=== PATIENT | female | born 1965 | race Caucasian/White ===

== ENCOUNTER 2016-07-26 08:39 | Emergency (ER) | payer OTHER ==
[~2016-07-26] VITALS: Ht 160 cm; Wt 109.0 kg
[~2016-07-26 08:39] MED LIST: ASPI81TA82 PO; FOLI1 PO; HYDR-3533 PO; HYDR200T42 PO; ISOS30 PO; LIPI20TA PO; LORA-392 PO; METH2.5 IM; METO25 PO; NITR.4 SL; PLAV75TA PO; PRIL20CA PO; SERT100 PO
[2016-07-26 08:41] VITALS: BP 151/98; PULSE 71; RESP 18; TEMP 97.9; O2SAT 96
[2016-07-26] MEDS ORDERED: ONDANSETRON ODT 4 MG TAB PO ONE (09:00)
--- NOTE | 2016-07-26 09:01 | PD ---
HPI Chief Complaint: Complaint Time Seen by Provider: 08:49 Travel History International Travel<30 days: No Contact w/Intl Traveler<30days: No Traveled to known affect area: No History of Present Illness HPI This 51-year-old female is complaining of suprapubic pressure and frequency of urination. Some nausea but has not vomited. She feels like she had a fever at home. She has had urinary tract infections in the past and feels well. She has a history of coronary artery disease, lupus and rheumatoid arthritis. PFSH Past Medical History Hx Anticoagulant Therapy: Yes Arthritis: Yes (RA) Asthma: No Autoimmune Disease: Yes (SCLERODERMA) Blood Disorders: No Anxiety: Yes Depression: No Heart Rhythm Problems: No Cancer: No Cardiac Catheterization: Yes Cardiovascular Problems: Yes High Cholesterol: Yes Chemotherapy: No Chest Pain: Yes Congestive Heart Failure: No COPD: No Cerebrovascular Accident: No Coronary Artery Disease: Yes Diabetes: No Diminished Hearing: No Endocrine: No Fibromyalgia: Yes Gastrointestinal Disorders: Yes (GERD) GERD: Yes Genitourinary: Yes (URETHROTOMY) Headaches: No Hepatitis: No Hiatal Hernia: Yes Hypertension: Yes Immune Disorder: Yes (RHEUMATOID ARTHRITIS, POSS. LUPUS) Implanted Vascular Access Dvce: No Kidney Stones: No Musculoskeletal: Yes (RHEUMATOID ARTHRITIS, OA) Neurologic: No Psychiatric: Yes (CLAUSTROPHOBIA, PANIC ATTACKS) Reproductive: Yes (MENORRHAGIA, DYSMENORRHEA) Respiratory: No Migraines: No Myocardial Infarction: Yes (2012) Radiation Therapy: No Renal Failure: No Seizures: No Sickle Cell Disease: No Sleep Apnea: No Thyroid Disease: No Ulcer: No Tetanus Vaccination: < 5 Years Influenza Vaccination: Yes ?: Not Past Surgical History Abdominal Surgery: No AICD: No Arteriovenous Shunt: No Body Medical Devices: CARDIAC STENTS, STERNAL WIRES Cardiac Surgery: Yes (2 VESSELL CABG IN FEB 2013, CARDIAC STENTS 09/2013,05/2014) Section: Yes Coronary Artery Bypass Graft: Yes (X2) Coronary Stent: Yes (10/2013 X2 05/2014 X1) Ear Surgery: No Endocrine Surgery: No Eye Surgery: No Genitourinary Surgery: Yes (CYSTO, URETHROTOMY ) Gynecologic Surgery: Yes (, TUBAL LIGATION) Hysterectomy: Yes Insulin Pump: No Joint Replacement: No Neurologic Surgery: No Oral Surgery: Yes (DENTAL EXTRACT., TONSILLECTOMY) Pacemaker: No Thoracic Surgery: Yes Other Surgery: Yes (CABG, , , DENTAL) Social History Alcohol Use: No Tobacco Use: No Substance Use: No Allergies-Medications (Allergen,Severity, Reaction): Coded Allergies: Demerol (Verified Allergy, Severe, Confusion, 07/26/16) Dilaudid (Verified Allergy, Severe, Flushing, 07/26/16) CONFUSION, REDNESS FROM CHEST UP Morphine (Verified Allergy, Severe, Rash, 07/26/16) REDNESS FROM CHEST UP, CONFUSION Contrast Media (Unverified Adverse Reaction, Intermediate, BURNING ON INJECTION, 07/26/16) Reported Meds & Prescriptions Reported Meds & Active Scripts Active Reported Prozac (Fluoxetine HCl) 40 Mg Cap 40 Mg PO DAILY [Embril] 50 Mg SQ WEEKLY Nitroglycerin SL (Nitroglycerin) 0.4 Mg Subl 0.4 Mg SL DIRECTED PRN ONE TABLET UNDER THE TONGUE NEEDED FOR CHEST PAIN, MAY REPEAT EVERY FIVE MINUTES FOR A TOTAL OF 3 DOSES OR CALL 911 IF NO RELIEF Metoprolol Tartrate 25 Mg Tab 25 Mg PO BID Methotrexate 2.5 Mg Tab 7.5 Mg IM Q7D Ativan (Lorazepam) 0.5 Mg Tab 0.5 Mg PO Q8H PRN Isosorbide Mononitrate 20 Mg Tab 60 Mg PO HS Take 2 doses 7 hours apart. Lortab (Hydrocodone-Acetaminophen) 5-325 Mg Tab 1 Tab PO TID PRN Plaquenil (Hydroxychloroquine Sulfate) 200 Mg Tab 200 Mg PO BID Take with food Folic Acid 800 Mcg Tab 1 Mg PO DAILY Plavix (Clopidogrel Bisulfate) 300 Mg Tab 75 Mg PO DAILY Lipitor (Atorvastatin Calcium) 20 Mg Tab 20 Mg PO HS Aspirin 81 Mg Chew 81 Mg CHEW DAILY Review of Systems General / Constitutional: Positive: Fever, Chills Eyes: No: Diploplia, Blurred Vision HENT: No: Headaches, Vertigo Cardiovascular: No: Chest Pain or Discomfort, Palpitations Respiratory: No: Cough, Shortness of Breath Gastrointestinal: No: Nausea, Vomiting Genitourinary: Positive: Frequency, Dysuria Musculoskeletal: No: Myalgias, Arthralgias Skin: No Rash, No Itching Neurologic: No: Weakness, Dizziness Endocrine: No: Heat Intolerance, Cold Intolerance Hematologic/Lymphatic: No: Easy Bruising Physical Exam Narrative GENERAL: Well-developed female SKIN: Focused skin assessment warm/dry. HEAD: Atraumatic. Normocephalic. EYES: Pupils equal and round. No scleral icterus. No injection or drainage. ENT: No nasal bleeding or discharge. Mucous membranes pink and moist. NECK: Trachea midline. No JVD. CARDIOVASCULAR: Regular rate and rhythm. No murmur appreciated. RESPIRATORY: No accessory muscle use. Clear to auscultation. Breath sounds equal bilaterally. GASTROINTESTINAL: Abdomen soft, there is some suprapubic tenderness, nondistended. Hepatic and splenic margins not palpable. Mild left CVA tenderness MUSCULOSKELETAL: No obvious deformities. No clubbing. No cyanosis. No edema. NEUROLOGICAL: Awake and alert. No obvious cranial nerve deficits. Motor grossly within normal limits. Normal speech. PSYCHIATRIC: Appropriate mood and affect; insight and judgment normal. Data Data Last Documented VS Vital Signs Date Time Temp Pulse Resp B/P Pulse Ox O2 Delivery O2 Flow Rate FiO2 07/26/16 08:41 97.9 71 18 151/98 96 Orders Urinalysis - C+S If Indicated (07/26/16 08:52) Ondansetron Odt (Zofran Odt) (07/26/16 09:00) Urine Culture (07/26/16 08:35) Cephalexin (Keflex) (07/26/16 09:30) Phenazopyridine (Pyridium) (07/26/16 09:30) Labs Laboratory Tests Test 07/26/16 08:35 Urine Collection Type CLEAN CATCH Urine Color YELLOW Urine Turbidity MOD Urine pH 6.0 Urine Specific [place] 1.017 Urine Protein 30 mg/dL Urine Glucose (UA) NEG mg/dL Urine Ketones NEG mg/dL Urine Occult Blood SMALL Urine Nitrite POS Urine Bilirubin NEG Urine Leukocyte Esterase MOD Urine RBC 0-3 /hpf Urine WBC 50-99 /hpf Urine WBC Clumps MOD Urine Squamous Epithelial > 8 /hpf Cells Urine Amorphous Sediment FEW Urine Bacteria MOD /hpf Microscopic Urinalysis Comment CULTURE INDICATED Urine Collection Time 0840 MDM Medical Decision Making Medical Screen Exam Complete: Yes Emergency Medical Condition: Yes Medical Record Reviewed: Yes Differential Diagnosis Differential includes UTI, cystitis, pyelonephritis Narrative Course Urinalysis shows 50-99 white cells with moderate clumps. Impression is urinary tract infection. She'll be treated with Keflex Diagnosis Primary Impression: Urinary tract infection Qualified Code: N30.00 - Acute cystitis without hematuria Scripts Ondansetron Odt (Zofran Odt)4 Mg Tab4 Mg SL Q6HR PRN (Nausea/Vomiting) #10 TAB Ref 0 Prov:Christopher Tamayo MD 07/26/16 Phenazopyridine (Pyridium)100 Mg [id number] Mg PO Q8H PRN (DYSURIA) #10 TAB Ref 0 Prov:Christopher Tamayo MD 07/26/16 Cephalexin 500 Mg [id number] Mg PO Q6H 10 Days Ref 0 Prov:hCristopher Tamaoy MD 07/26/16 Disposition: 01 DISCHARGE HOME Condition: Stable Christopher Tamayo MD July 26, 2016 09:01
[2016-07-26 09:02] LABS: BLOOD, URINE SMALL (NEG); GLUCOSE,URINE NEG (NEG); KETONE, URINE NEG (NEG)
[2016-07-26] MEDS ORDERED: FOLI800T PO (09:05)
[2016-07-26] MEDS ORDERED: OMEP20TA PO (09:05)
[2016-07-26] MEDS ORDERED: METH2.5T IM (09:05)
[2016-07-26] MEDS ORDERED: NITR1SUB3 SL (09:05)
[2016-07-26] MEDS ORDERED: PROZ40CA PO (09:05)
[2016-07-26] MEDS ORDERED: LORA-392 PO (09:05)
[2016-07-26] MEDS ORDERED: HYDR-3533 PO (09:05)
[2016-07-26] MEDS ORDERED: METO25TA3 PO (09:05)
[2016-07-26] MEDS ORDERED: EMBRIL SQ (09:05)
[2016-07-26] MEDS ORDERED: CLOP300 PO (09:05)
[2016-07-26] MEDS ORDERED: ASPI81CH CHEW (09:05)
[2016-07-26] MEDS ORDERED: LIPI20TA PO (09:05)
[2016-07-26] MEDS ORDERED: ISOS20TA PO (09:05)
[2016-07-26] MEDS ORDERED: PLAQ200T PO (09:05)
[2016-07-26 09:06] LABS: NITRITE,URINE POS (NEG)
[2016-07-26 09:08] LABS: BACTERIA, URINE MOD /hpf; CULTURE IF INDICATED CULTURE INDICATED; METHOD OF COLLECTION CLEAN CATCH; RBC, URINE 0-3 /hpf (0-3); SQUAMOUS EPITHELIAL CELL URINE > 8 /hpf (0-5); URINE COLOR YELLOW (YELLW/STRAW)
[2016-07-26 09:09] LABS: COMMENT (UR) CULTURE INDICATED
[2016-07-26] MEDS ORDERED: PHEN0.4T PO (09:21)
[2016-07-26] MEDS ORDERED: CEPH500T PO (09:21)
[2016-07-26] MEDS ORDERED: ZOFR4TAB3 SL (09:22)
[2016-07-26] MEDS ORDERED: CEPHALEXIN MONOHYDRATE 500 MG CAP PO ONE (09:30)
[2016-07-26] MEDS ORDERED: PHENAZOPYRIDINE HCL 200 MG TAB PO ONE (09:30)
[2016-07-27] MEDS ORDERED: ENBR25IN2 SQ (10:48)
== END 2016-07-26 09:31 | disposition home or self-care (01) ==
LOC: PHED 08:39
DX: N39.0 Urinary tract infection, site not specified (principal); I25.2 Old myocardial infarction; M06.9 Rheumatoid arthritis, unspecified; I10 Essential (primary) hypertension; K21.9 Gastro-esophageal reflux disease without esophagitis; M79.7 Fibromyalgia; I25.10 Atherosclerotic heart disease of native coronary artery without angina pectoris; F41.9 Anxiety disorder, unspecified; Z79.01 Long term (current) use of anticoagulants
CPT/HCPCS: 81001; 87077; 87086; 87186; 99283

== ENCOUNTER 2017-03-15 12:40 | Observation (INO) | payer OTHER ==
[~2017-03-15] VITALS: Ht 160 cm; Wt 108.8 kg
[2017-03-15] VITALS (11 sets, daily range): BP systolic 112–156; BP diastolic 60–79; PULSE 56–86; RESP 16–20; TEMP 96.8–97.9; O2SAT 96–98
[~2017-03-15 12:40] MED LIST changes: +ASPI-516 CHEW; -ASPI81TA82 PO; +CEPH500T PO; +CLOP300 PO; +ENBR25IN2 SQ; -FOLI1 PO; +FOLI800T PO; -HYDR200T42 PO; +ISOS20TA PO; -ISOS30 PO; -METH2.5 IM; +METH2.5T IM; -METO25 PO; +METO25TA3 PO; -NITR.4 SL; +NITR1SUB3 SL; +OMEP20TA93 PO; +PHEN0.4T PO; +PLAQ200T PO; -PLAV75TA PO; -PRIL20CA PO; +PROZ40CA PO; -SERT100 PO; +ZOFR4TAB3 SL
[2017-03-15] MEDS ORDERED: PRED5TAB PO (12:59)
[2017-03-15] MEDS ORDERED: HYDR-3516 PO (12:59)
[2017-03-15] MEDS ORDERED: NITROGLYCERIN 2% OINT 1 GM PACKET TOP ONE (13:00)
[2017-03-15] MEDS ORDERED: SODIUM CHLORIDE 0.9% FLUSH 10 ML FLUSH IVF PRN (13:00)
[2017-03-15] MEDS: METOPROLOL TARTRATE 5 MG/5 ML VIAL IVS SCH ×3 (13:00→13:10)
--- NOTE | 2017-03-15 13:11 | RADRPT ---
EXAM DATE/TIME: 03/15/2017 12:59 [facility] COMPARISON: CHEST SINGLE AP, December 26, 2015, 4:25. INDICATIONS : Chest pain MEDICAL HISTORY : Hypertension. Hypercholesterolemia. Myocardial infarction SURGICAL HISTORY : CABG. ENCOUNTER: Initial ACUITY: 1 day PAIN SCORE: 10/10 LOCATION: middle chest FINDINGS: Portable AP view of the chest demonstrates a normal-sized cardiac silhouette in this patient post med stone sternotomy. No effusion, consolidation, or pneumothorax is identified. The bones and soft tissues demonstrate no acute finding. CONCLUSION: No acute cardiopulmonary abnormality is identified. Abdelrahman Kellogg MD on March 15, 2017 at 13:08 Board Certified Radiologist. This report was verified electronically.
[2017-03-15 13:20] LABS: BASOPHIL # 0.2 TH/MM3 (0-0.2); BASOPHIL % 1.9 % (0.0-2.0); EOSINOPHIL # 0.2 TH/MM3 (0-0.4); EOSINOPHIL % 1.7 % (0.0-4.0); HEMATOCRIT 41.9 % (35.0-46.0); LYMPH % 38.9 % (9.0-44.0); LYMPHOCYTE # 4.3 TH/MM3 (1.0-4.8); MEAN CELL VOLUME 80.1 FL (80.0-100.0); MEAN CORPUSCULAR HEMOGLOBIN 24.9 PG (27.0-34.0); MEAN PLATELET VOLUME 7.3 FL (7.0-11.0); MONO % 2.5 % (0.0-8.0); MONOCYTE # 0.3 TH/MM3 (0-0.9); PLATELET COUNT 497 TH/MM3 (150-450); RED BLOOD COUNT 5.23 MIL/MM3 (4.00-5.30); RED CELL DISTRIBUTION WIDTH 17.2 % (11.6-17.2)
--- NOTE | 2017-03-15 13:23 | PD ---
HPI . Chest pain Chief Complaint: Chest Pain Time Seen by Provider: 12:52 Travel History International Travel<30 days: No Contact w/Intl Traveler<30days: No Traveled to known affect area: No History of Present Illness HPI This patient presents with chief complaint of chest pain. Onset was 2 AM. She states that the pain initially eased off but then recurred again about 10:00 this morning and constant since then. She describes the pain as a heaviness which radiates to her back. She rates it 7/10. She has not noted any modifying factors. Associated symptoms include sweating and nausea. She took aspirin prior to arrival. She states that she does not have any nitroglycerin at home. This patient is a previous history of coronary artery disease and is status post CABG 2 vessels and 5 previous stents. She did have an evaluation in the chest pain center in December 2015. She had a negative Lexiscan stress test and myocardial perfusion scan. PFSH Past Medical History Hx Anticoagulant Therapy: Yes Arthritis: Yes (RA) Asthma: No Autoimmune Disease: Yes (SCLERODERMA) Blood Disorders: No Anxiety: Yes Depression: No Heart Rhythm Problems: No Cancer: No Cardiac Catheterization: Yes Cardiovascular Problems: Yes High Cholesterol: Yes Chemotherapy: No Chest Pain: Yes Congestive Heart Failure: No COPD: No Cerebrovascular Accident: No Coronary Artery Disease: Yes Diabetes: No Diminished Hearing: No Endocrine: No Fibromyalgia: Yes Gastrointestinal Disorders: Yes (GERD) GERD: Yes Genitourinary: Yes (URETHROTOMY) Headaches: No Hepatitis: No Hiatal Hernia: Yes Hypertension: Yes Immune Disorder: Yes (RHEUMATOID ARTHRITIS, POSS. LUPUS) Implanted Vascular Access Dvce: No Kidney Stones: No Musculoskeletal: Yes (RHEUMATOID ARTHRITIS, OA) Neurologic: No Psychiatric: Yes (CLAUSTROPHOBIA, PANIC ATTACKS) Reproductive: Yes (MENORRHAGIA, DYSMENORRHEA) Respiratory: No Migraines: No Myocardial Infarction: Yes (2012) Radiation Therapy: No Renal Failure: No Seizures: No Sickle Cell Disease: No Sleep Apnea: No Thyroid Disease: No Ulcer: No ?: Not Past Surgical History Abdominal Surgery: No AICD: No Arteriovenous Shunt: No Body Medical Devices: CARDIAC STENTS, STERNAL WIRES Cardiac Surgery: Yes (2 VESSELL CABG IN FEB 2013, CARDIAC STENTS 09/2013,05/2014) Section: Yes Coronary Artery Bypass Graft: Yes (X2) Coronary Stent: Yes (10/2013 X2 05/2014 X1) Ear Surgery: No Endocrine Surgery: No Eye Surgery: No Genitourinary Surgery: Yes (CYSTO, URETHROTOMY ) Gynecologic Surgery: Yes (, TUBAL LIGATION) Hysterectomy: Yes Insulin Pump: No Joint Replacement: No Neurologic Surgery: No Oral Surgery: Yes (DENTAL EXTRACT., TONSILLECTOMY) Pacemaker: No Thoracic Surgery: Yes Other Surgery: Yes (CABG, , , DENTAL) Social History Alcohol Use: No Tobacco Use: No Substance Use: No Allergies-Medications (Allergen,Severity, Reaction): Coded Allergies: hydromorphone (Unverified Allergy, Severe, Flushing, 10/17/16) CONFUSION, REDNESS FROM CHEST UP meperidine (Unverified Allergy, Severe, Confusion, 10/17/16) morphine (Unverified Allergy, Severe, Rash, 10/17/16) REDNESS FROM CHEST UP, CONFUSION diatrizoate meglumine (Unverified Adverse Reaction, Intermediate, BURNING ON INJECTION, 10/17/16) gadobenic acid (Unverified Adverse Reaction, Intermediate, BURNING ON INJECTION, 10/17/16) gadodiamide (Unverified Adverse Reaction, Intermediate, BURNING ON INJECTION, 10/17/16) gadoteridol (Unverified Adverse Reaction, Intermediate, BURNING ON INJECTION, 10/17/16) iodixanol (Unverified Adverse Reaction, Intermediate, BURNING ON INJECTION , 10/17/16) iohexol (Unverified Adverse Reaction, Intermediate, BURNING ON INJECTION, 10/17/16) Reported Meds & Prescriptions Reported Meds & Active Scripts Active Reported Prednisone 5 Mg Tab 5 Mg PO DAILY Hydrocodone-Acetaminophen 5-325 mg Tab 1 Tab PO BID PRN Enbrel Inj Kit (Etanercept) 25 Mg Kit 50 Mg SQ WEEKLY Prozac (Fluoxetine HCl) 40 Mg Cap 40 Mg PO DAILY Omeprazole 20 Mg Tab 20 Mg PO DAILY Nitroglycerin SL (Nitroglycerin) 0.4 Mg Subl 0.4 Mg SL DIRECTED PRN ONE TABLET UNDER THE TONGUE NEEDED FOR CHEST PAIN, MAY REPEAT EVERY FIVE MINUTES FOR A TOTAL OF 3 DOSES OR CALL 911 IF NO RELIEF Metoprolol Tartrate 25 Mg Tab 25 Mg PO BID Methotrexate 2.5 Mg Tab 7.5 Mg IM Q7D Ativan (Lorazepam) 0.5 Mg Tab 0.5 Mg PO Q8H PRN Plaquenil (Hydroxychloroquine Sulfate) 200 Mg Tab 200 Mg PO BID Take with food Plavix (Clopidogrel Bisulfate) 300 Mg Tab 75 Mg PO DAILY Lipitor (Atorvastatin Calcium) 20 Mg Tab 20 Mg PO HS Aspirin 81 Mg Chew 81 Mg CHEW DAILY Review of Systems Except as stated in HPI: all other systems reviewed are Neg General / Constitutional: Positive: Other (diaphoresis) Cardiovascular: Positive: Chest Pain or Discomfort Respiratory: Positive: Shortness of Breath Gastrointestinal: Positive: Nausea Physical Exam Narrative GENERAL: Patient looks comfortable. SKIN: warm/dry. No diaphoresis currently. HEAD: Normocephalic. Atraumatic. EYES: Pupils equal and round. No scleral icterus. No injection or drainage. ENT: No nasal bleeding or discharge. Mucous membranes pink and moist. NECK: Trachea midline. Full range of motion without pain.. CARDIOVASCULAR: Regular rate and rhythm. Heart sounds are normal. RESPIRATORY: No accessory muscle use. Clear to auscultation. Breath sounds equal bilaterally. Chest wall is nontender to palpation. GASTROINTESTINAL: Abdomen soft. Nontender. Bowel sounds present. Nondistended. MUSCULOSKELETAL: No obvious deformities. No peripheral edema. NEUROLOGICAL: Awake and alert. No obvious cranial nerve deficits. Motor grossly within normal limits. Normal speech. PSYCHIATRIC: Appropriate mood and affect; insight and judgment normal. Data Data Last Documented VS Vital Signs Date Time Temp Pulse Resp B/P (MAP) Pulse Ox O2 Delivery O2 Flow Rate FiO2 03/15/17 13:30 60 17 136/65 (88) 97 Room Air Orders Orders Basic Metabolic Panel (Bmp) (03/15/17 12:52) Ckmb (Isoenzyme) Profile (03/15/17 12:52) Complete Blood Count With Diff (03/15/17 12:52) Magnesium (Mg) (03/15/17 12:52) Prothrombin Time / Inr (Pt) (03/15/17 12:52) Act Partial Throm Time (Ptt) (03/15/17 12:52) Troponin I (03/15/17 12:52) Chest, Single Ap (03/15/17 12:52) Ecg Monitoring (03/15/17 12:52) Iv Access Insert/Monitor (03/15/17 12:52) Oximetry (03/15/17 12:52) Nitroglycerin 2% Oint (Nitroglycerin 2% (03/15/17 13:00) Sodium Chloride 0.9% Flush (Ns Flush) (03/15/17 13:00) Metoprolol Tartrate Inj (Lopressor Inj) (03/15/17 13:00) Admit Order (Ed Use Only) (03/15/17 ) Database Operator / Telemetry ANA.Q8H (03/15/17 14:23) Vital Signs (Adult) Q4H (03/15/17 14:23) Diet Npo (03/15/17 Dinner) Diet Heart Healthy (03/15/17 Dinner) Activity Oob With Assistance (03/15/17 14:23) Notify Dr: Other (03/15/17 14:23) Labs Laboratory Tests Test 03/15/17 13:15 White Blood Count 11.0 TH/MM3 Red Blood Count 5.23 MIL/MM3 Hemoglobin 13.0 GM/DL Hematocrit 41.9 % Mean Corpuscular Volume 80.1 FL Mean Corpuscular Hemoglobin 24.9 PG Mean Corpuscular Hemoglobin Concent 31.0 % Red Cell Distribution Width 17.2 % Platelet Count 497 TH/MM3 Mean Platelet Volume 7.3 FL Neutrophils (%) (Auto) 55.0 % Lymphocytes (%) (Auto) 38.9 % Monocytes (%) (Auto) 2.5 % Eosinophils (%) (Auto) 1.7 % Basophils (%) (Auto) 1.9 % Neutrophils # (Auto) 6.0 TH/MM3 Lymphocytes # (Auto) 4.3 TH/MM3 Monocytes # (Auto) 0.3 TH/MM3 Eosinophils # (Auto) 0.2 TH/MM3 Basophils # (Auto) 0.2 TH/MM3 CBC Comment DIFF FINAL Differential Comment Prothrombin Time 10.0 SEC Prothromb Time International Ratio 1.0 RATIO Activated Partial Thromboplast Time 27.2 SEC Blood Urea Nitrogen 15 MG/DL Creatinine 0.87 MG/DL Random Glucose 108 MG/DL Calcium Level 8.7 MG/DL Magnesium Level 2.4 MG/DL Sodium Level 138 MEQ/L Potassium Level 4.2 MEQ/L Chloride Level 104 MEQ/L Carbon Dioxide Level 25.3 MEQ/L Anion Gap 9 MEQ/L Estimat Glomerular Filtration Rate 69 ML/MIN Total Creatine Kinase 42 U/L Troponin I LESS THAN 0.02 NG/ML Exceptions Acute Myocardial Infarction ASA Not Given on Arrival: Already taken by patient MDM Medical Decision Making Medical Screen Exam Complete: Yes Emergency Medical Condition: Yes Medical Record Reviewed: Yes (PMH of HTN, CAD, PVD, RA) Differential Diagnosis Differential diagnosis of chest pain includes but is not limited to musculoskeletal pain, pulmonary embolism, acute coronary syndrome, pneumonia, pleurisy Narrative Course This patient presents with a chief complaint chest pain. Onset was 2 AM. She has a positive history of coronary artery disease and is status post CABG 2 vessels and stents 5. My initial plan will be to admit her to the chest pain center if her first set of enzymes is negative. CBC & BMP Diagram 03/15/17 13:15 Calcium Level 8.7, Magnesium Level 2.4 trop < 0.02 Last Impressions Chest X-Ray 03/15/17 1252 Signed Impressions: Service Date/Time: Wednesday, March 15, 2017 12:59 - CONCLUSION: No acute cardiopulmonary abnormality is identified. Abdelrahman Kellogg MD Patient reports that her pain is still a 6/10. It did ease with NITROGLYCERIN. She is allergic to morphine. I will admit the patient chest pain center. Physician Communication Physician Communication Dr. Temple Diagnosis Primary Impression: Chest pain Qualified Codes: R07.9 - Chest pain, unspecified Admitting Information Admitting Physician Requests: Observation Condition: Stable Clarita Larsen MD Mar 15, 2017 13:23
[2017-03-15 13:35] LABS: CHLORIDE 104 MEQ/L (98-107); SODIUM (NA) 138 MEQ/L (136-145)
[2017-03-15 13:37] LABS: CALCIUM 8.7 MG/DL (8.5-10.1)
[2017-03-15 13:38] LABS: BICARBONATE 25.3 MEQ/L (21.0-32.0); BLOOD UREA NITROGEN 15 MG/DL (7-18); GLUCOSE,RANDOM 108 MG/DL (74-106); MAGNESIUM 2.4 MG/DL (1.5-2.5)
[2017-03-15 13:41] LABS: CREATININE 0.87 MG/DL (0.50-1.00); GLOMERULAR FILTRATION RATE 69 ML/MIN (>89)
[2017-03-15 13:46] LABS: TROPONIN I LESS THAN 0.02 NG/ML (0.02-0.05)
[2017-03-15] MEDS ORDERED: SODIUM CHLORIDE 0.9% FLUSH 10 ML FLUSH IV FLUSH PRN (14:45)
[2017-03-15] MEDS ORDERED: NALOXONE HCL 0.4 MG/ML AMP IV PUSH PRN (14:45)
--- NOTE | 2017-03-15 15:48 | HHI.HP ---
[facility] Primary Care Physician No Primary Care Physician Admission Diagnosis Chest pain Diagnoses: (1) Chest pain Diagnosis: Principal Chief Complaint: Chest pain Travel History International Travel<30 Days: No Contact w/Intl Traveler <30 Da: No Traveled to Known Affected Are: No History of Present Illness Written by Sita Avalos, acting as scribe for Dr. Temple on 03/15/17 at 15:35. This is a 51-year-old female patient with a known medical history of rheumatoid arthritis, hyperlipidemia, CAD with history of CABG and cardiac stent placement who presented to the ED with complaints of chest pain. Patient states that around 2 AM this morning while laying in bed she developed a midsternal pressure -like pain that was heavy and constant in nature rated seven out of ten on pain scale, felt heavy. Denies any radiation of pain to her neck jaw or arm. Does admit to associated nausea diaphoresis and shortness of breath. Denies any vomiting. Patient states that around 10 AM this morning she decided to take the dog for a walk to help relieve the pain which actually made it worse with increasing shortness of breath. Patient states that she tried to lay down and the pain just kept getting worse therefore she presented to the ED. She denies any recent illness including fever, chills, abdominal pain, nausea, vomiting, diarrhea or dysuria. Patient does state that she has a history of CAD with TN and CABG 2 vessels and five previous cardiac stent placements. Patient states that her last cardiac catheterization was done in 2014. She last underwent a cardiac chemical stress test in December of 2015 which was reportedly negative. Patient was following with Dr. tyson in the outpatient setting, but has recently switched her health insurance and no longer follows with him. Denies having a current electrician outside. Review of Systems Constitutional: DENIES: Fever, Chills Eyes: DENIES: Blurred vision, Diplopia Respiratory: COMPLAINS OF: Shortness of breath, DENIES: Cough Cardiovascular: COMPLAINS OF: Chest pain Gastrointestinal: COMPLAINS OF: Nausea, DENIES: Abdominal pain, Bloody stools, Constipation, Diarrhea, Vomiting Integumentary: DENIES: Abnormal pigmentation Hematologic/lymphatic: DENIES: Bruising Psychiatric: COMPLAINS OF: Anxiety Except as stated in HPI: all other systems reviewed are Neg Past Family Social History Past Medical History 1) hypertension 2) coronary artery disease CABG 2 in 2012 2 coronary stents placed in September 2013 In-stent stenosis in May 2014 3) peripheral arterial disease Status post restenosis, performed by Dr. Tyson 4) rheumatoid arthritis 5) anxiety 6) GERD 7) hyperlipidemia 8) anxiety and panic attacks 9) vitamin D deficiency Past Surgical History 1) right knee arthroscopy 2) 3) cystoscopy 4) stenting of her right external iliac artery and PTCA with stenting of the right posterior tibial artery with thrombectomy of the right posterior tibial artery November 2013 5) subsequent repeat revascularization procedures of the lower extremities 6) CABG 7) dilation and curettage with hysteroscopy and endometrial polypectomy Reported Medications Active Reported Prednisone 5 Mg Tab 5 Mg PO DAILY Hydrocodone-Acetaminophen 5-325 mg Tab 1 Tab PO BID PRN Enbrel Inj Kit (Etanercept) 25 Mg Kit 50 Mg SQ WEEKLY Prozac (Fluoxetine HCl) 40 Mg Cap 40 Mg PO DAILY Omeprazole 20 Mg Tab 20 Mg PO DAILY Nitroglycerin SL (Nitroglycerin) 0.4 Mg Subl 0.4 Mg SL DIRECTED PRN ONE TABLET UNDER THE TONGUE NEEDED FOR CHEST PAIN, MAY REPEAT EVERY FIVE MINUTES FOR A TOTAL OF 3 DOSES OR CALL 911 IF NO RELIEF Metoprolol Tartrate 25 Mg Tab 25 Mg PO BID Methotrexate 2.5 Mg Tab 7.5 Mg IM Q7D Ativan (Lorazepam) 0.5 Mg Tab 0.5 Mg PO Q8H PRN Plaquenil (Hydroxychloroquine Sulfate) 200 Mg Tab 200 Mg PO BID Take with food Plavix (Clopidogrel Bisulfate) 300 Mg Tab 75 Mg PO DAILY Lipitor (Atorvastatin Calcium) 20 Mg Tab 20 Mg PO HS Aspirin 81 Mg Chew 81 Mg CHEW DAILY Allergies: Coded Allergies: hydromorphone (Unverified Allergy, Severe, Flushing, 10/17/16) CONFUSION, REDNESS FROM CHEST UP meperidine (Unverified Allergy, Severe, Confusion, 10/17/16) morphine (Unverified Allergy, Severe, Rash, 10/17/16) REDNESS FROM CHEST UP, CONFUSION diatrizoate meglumine (Unverified Adverse Reaction, Intermediate, BURNING ON INJECTION, 10/17/16) gadobenic acid (Unverified Adverse Reaction, Intermediate, BURNING ON INJECTION, 10/17/16) gadodiamide (Unverified Adverse Reaction, Intermediate, BURNING ON INJECTION, 10/17/16) gadoteridol (Unverified Adverse Reaction, Intermediate, BURNING ON INJECTION, 10/17/16) iodixanol (Unverified Adverse Reaction, Intermediate, BURNING ON INJECTION , 10/17/16) iohexol (Unverified Adverse Reaction, Intermediate, BURNING ON INJECTION, 10/17/16) Active Ordered Medications Current Medications Medications (Trade) Dose Ordered Sig/Indy Route Start Time Stop Time Status Last Admin (NS Flush) 2 ml UNSCH PRN IVF 03/15/17 13:00 (NS Flush) 2 ml UNSCH PRN IV FLUSH 03/15/17 14:45 UNV (NS Flush) 2 ml BID IV FLUSH 03/15/17 21:00 UNV (Tylenol) 650 mg Q4H PRN PO 03/15/17 16:00 (Zofran Inj) 4 mg Q6H PRN IVP 03/15/17 14:45 UNV (Restoril) 15 mg HS PRN PO 03/15/17 14:45 UNV (Lovenox Inj) 40 mg Q24H SQ 03/15/17 14:45 UNV (Narcan Inj) 0.4 mg UNSCH PRN IV PUSH 03/15/17 14:45 UNV (Jacqueline-Colace) 1 tab BID PO 03/15/17 21:00 (Milk Of Magnesia Liq) 30 ml Q12H PRN PO 03/15/17 14:45 UNV (Senokot) 17.2 mg Q12H PRN PO 03/15/17 14:45 UNV (Dulcolax Supp) 10 mg DAILY PRN RECTAL 03/15/17 16:00 (Lactulose Liq) 30 ml DAILY PRN PO 03/15/17 16:00 (Aspirin Chew) 81 mg DAILY CHEW 03/16/17 09:00 (Lipitor) 20 mg HS PO 03/15/17 21:00 (Plavix) 75 mg DAILY PO 03/16/17 09:00 ([place] 5-325 Mg) 1 tab BID PRN PO 03/15/17 14:45 UNV (Plaquenil) 200 mg BID PO 03/15/17 21:00 UNV (Ativan) 0.5 mg Q8H PRN PO 03/15/17 14:45 UNV (Lopressor) 25 mg BID PO 03/15/17 21:00 UNV (Deltasone) 5 mg DAILY PO 03/16/17 09:00 UNV Non-Formulary Medication 50 mg WEEKLY SQ 03/15/17 14:45 UNV Non-Formulary Medication 40 mg DAILY PO 03/16/17 09:00 UNV Non-Formulary Medication 20 mg DAILY PO 03/16/17 09:00 UNV (Nitroglycerin 2% Oint) 1 inch Q6HR TOPICAL 03/15/17 18:00 UNV Family History Maternal medical history significant for rheumatoid arthritis. Mother also had two MIs in the past. Paternal medical history significant for TN and stent placement. Social History Patient quit smoking in 2012, prior to that she smoked over thirty years roughly 2 packs per day. Admits to rare alcohol use. Denies any illicit drug use. Physical Exam Vital Signs Vital Signs Date Time Temp Pulse Resp B/P (MAP) Pulse Ox O2 Delivery O2 Flow Rate FiO2 03/15/17 14:30 56 16 119/60 (79) 97 Room Air 03/15/17 13:30 60 17 136/65 (88) 97 Room Air 03/15/17 13:15 18 96 Room Air 03/15/17 13:15 58 18 135/60 (85) 96 Room Air 03/15/17 12:46 60 16 156/79 (104) 98 Physical Exam GENERAL: This is a well-nourished, well-developed patient, in no apparent distress. SKIN: No rashes, ecchymoses or lesions. Warm and dry. HEAD: Atraumatic. Normocephalic. EYES: Pupils equal round and reactive. Extraocular motions intact. No scleral icterus. No injection or drainage. ENT: Nose without bleeding, purulent drainage or septal hematoma. Throat without erythema, tonsillar hypertrophy or exudate. Uvula midline. Airway patent. NECK: Trachea midline. No JVD. Supple. CARDIOVASCULAR: Regular rate and rhythm without murmurs, gallops, or rubs. No reproducible chest pain to palpation. RESPIRATORY: Clear to auscultation. Breath sounds equal bilaterally. No wheezes , rales, or rhonchi. GASTROINTESTINAL: Abdomen soft, non-tender, nondistended. No guarding. MUSCULOSKELETAL: Extremities without clubbing, cyanosis, or edema. No joint tenderness, effusion, or edema noted. NEUROLOGICAL: Awake and alert. Cranial nerves II through XII intact. Motor and sensory grossly within normal limits. Five out of 5 muscle strength in all muscle groups. Normal speech. Laboratory Laboratory Tests Test 03/15/17 13:15 White Blood Count 11.0 Red Blood Count 5.23 Hemoglobin 13.0 Hematocrit 41.9 Mean Corpuscular Volume 80.1 Mean Corpuscular Hemoglobin 24.9 Mean Corpuscular Hemoglobin Concent 31.0 Red Cell Distribution Width 17.2 Platelet Count 497 Mean Platelet Volume 7.3 Neutrophils (%) (Auto) 55.0 Lymphocytes (%) (Auto) 38.9 Monocytes (%) (Auto) 2.5 Eosinophils (%) (Auto) 1.7 Basophils (%) (Auto) 1.9 Neutrophils # (Auto) 6.0 Lymphocytes # (Auto) 4.3 Monocytes # (Auto) 0.3 Eosinophils # (Auto) 0.2 Basophils # (Auto) 0.2 CBC Comment DIFF FINAL Differential Comment Prothrombin Time 10.0 Prothromb Time International Ratio 1.0 Activated Partial Thromboplast Time 27.2 Blood Urea Nitrogen 15 Creatinine 0.87 Random Glucose 108 Calcium Level 8.7 Magnesium Level 2.4 Sodium Level 138 Potassium Level 4.2 Chloride Level 104 Carbon Dioxide Level 25.3 Anion Gap 9 Estimat Glomerular Filtration Rate 69 Total Creatine Kinase 42 Troponin I LESS THAN 0.02 Result Diagram: 03/15/17 1315 03/15/17 1315 Imaging Last Impressions Chest X-Ray 03/15/17 1252 Signed Impressions: Service Date/Time: Wednesday, March 15, 2017 12:59 - CONCLUSION: No acute cardiopulmonary abnormality is identified. Abdelrahman Kellogg MD Septic Shock Reassessment Septic shock perfusion: reassessment completed Caprini VTE Risk Assessment Caprini VTE Risk Assessment: No/Low Risk (score <= 1) Caprini Risk Assessment Model Point Value = 1 Point Value = 2 Point Value = 3 Point Value = 5 Age 41-60 Minor surgery BMI > 25 kg/m2 Swollen legs Varicose veins or History of unexplained or recurrent spontaneous Oral contraceptives or hormone replacement Sepsis (< 1 month) Serious lung disease, including pneumonia (< 1 month) Abnormal pulmonary function Acute myocardial infarction Congestive heart failure (< 1 month) History of inflammatory bowel disease Medical patient at bed rest Age 61-74 Arthroscopic surgery Major open surgery (> 45 min) Laparoscopic surgery (> 45 min) Malignancy Confined to bed (> 72 hours) Immobilizing plaster cast Central venous access Age >= 75 History of VTE Family history of VTE Factor V Leiden Prothrombin [id number] Lupus anticoagulant Anticardiolipin antibodies Elevated serum homocysteine Heparin-induced thrombocytopenia Other congenital or acquired thrombophilia Stroke (< 1 month) Elective arthroplasty Hip, pelvis, or leg fracture Acute spinal cord injury (< 1 month) Prophylaxis Regimen Total Risk Factor Score Risk Level Prophylaxis Regimen 0-1 Low Early ambulation 2 Moderate Order ONE of the following: *Sequential Compression Device (SCD) *Heparin 5000 units SQ BID 3-4 Higher Order ONE of the following medications: *Heparin 5000 units SQ TID *Enoxaparin/Lovenox 40 mg SQ daily (WT < 150 kg, CrCl > 30 mL/min) *Enoxaparin/Lovenox 30 mg SQ daily (WT < 150 kg, CrCl > 10-29 mL/min) *Enoxaparin/Lovenox 30 mg SQ BID (WT < 150 kg, CrCl > 30 mL/min) AND/OR *Sequential Compression Device (SCD) 5 or more Highest Order ONE of the following medications: *Heparin 5000 units SQ TID (Preferred with Epidurals) *Enoxaparin/Lovenox 40 mg SQ daily (WT < 150 kg, CrCl > 30 mL/min) *Enoxaparin/Lovenox 30 mg SQ daily (WT < 150 kg, CrCl > 10-29 mL/min) *Enoxaparin/Lovenox 30 mg SQ BID (WT < 150 kg, CrCl > 30 mL/min) AND *Sequential Compression Device (SCD) Assessment and Plan Problem List: (1) Chest pain ICD Code: R07.9 - Chest pain Status: Acute Plan: Patient has been admitted to the chest pain center for observation. She does have extensive cardiovascular disease history with presence of CAD, history of TN and CABG 2 vessels with previous cardiac stent placement 5. Serial EKGs and serial troponins have been ordered for ruling out purposes. Initial troponin is negative. Will follow trend. EKG reviewed showing sinus bradycardia, no arrhythmias, no T-wave changes noted. Nitroglycerin placed on chest. Placed on daily aspirin. Control pain, [place] available when necessary as needed. CBC and BMP reviewed, essentially unremarkable. Chest x-ray reviewed showing no acute cardiopulmonary abnormality. Supplemental O2 as needed. Supportive care. At this time patient states that the pain has improved from a seven out of ten on pain scale to 4/10 with the use of nitroglycerin. Continue cardiac telemetry, monitor for any arrhythmias. Will allow patient to eat tonight, will place on nothing by mouth after midnight for possible stress test in a.m. (2) Hyperlipidemia ICD Code: E78.5 - Hyperlipidemia Status: Chronic Plan: Continue home statin. (3) CAD (coronary artery disease) ICD Code: I25.10 - Coronary artery disease Status: Chronic Plan: With TN history and CABG 2 vessels Continue daily aspirin. Continue home Plavix and Plaquenil. (4) Rheumatoid arthritis ICD Code: M06.9 - Rheumatoid arthritis Status: Acute Plan: Continue home prednisone. DVT prophylaxis: SCDs. Lovenox. Patient is stable at this time and agreeable to the plan. Assessment and Plan This note was transcribed by THERESA Ugarte. I, Dr. Tangela Temple personally performed the history, physical exam, and medical decision making; and confirmed the accuracy of the information in the transcribed note. Authenticated by Dr. Tangela Temple on 03/15/17 at 15:35. Problem Qualifiers (1) Chest pain: Qualified Codes: R07.9 - Chest pain, unspecified Sita Avalos Mar 15, 2017 15:48 Tangela Temple MD Mar 15, 2017 15:54
[2017-03-15] MEDS: ENOXAPARIN SODIUM 40 MG/0.4 ML SYRINGE SQ SCH (15:59)
[2017-03-15] MEDS ORDERED: LACTULOSE SYRUP 20 GM/30 ML CUP PO PRN (16:00)
[2017-03-15] MEDS ORDERED: ACETAMINOPHEN 325 MG TAB PO PRN (16:00)
[2017-03-15] MEDS ORDERED: BISACODYL 10 MG SUPP RECTAL PRN (16:00)
[2017-03-15] MEDS ORDERED: ONDANSETRON HCL 4 MG/2 ML VIAL IVP PRN (16:00)
[2017-03-15] MEDS ORDERED: TEMAZEPAM 15 MG CAP PO PRN (16:00)
[2017-03-15] MEDS ORDERED: LORazepam 0.5 MG TAB PO PRN (16:00)
[2017-03-15] MEDS ORDERED: SENNOSIDES 8.6 MG TAB PO PRN (16:00)
[2017-03-15] MEDS ORDERED: MAGNESIUM HYDROXIDE SUSP 30 ML CUP PO PRN (16:00)
[2017-03-15] MEDS: NITROGLYCERIN 2% OINT 1 GM PACKET TOPICAL SCH (19:11)
[2017-03-15] MEDS: ATORVASTATIN 20 MG TAB PO SCH (21:23)
[2017-03-15] MEDS: DOCUSATE SODIUM 50 MG/SENNA 8.6 MG TAB PO SCH (21:24)
[2017-03-15] MEDS: HYDROXYCHLOROQUINE SULFATE 200 MG TAB PO SCH (21:25)
[2017-03-15] MEDS: METOPROLOL TARTRATE 25 MG TAB PO SCH (21:25)
[2017-03-15] MEDS: SODIUM CHLORIDE 0.9% FLUSH 10 ML FLUSH IV FLUSH SCH (21:26)
[2017-03-16] VITALS: BP 113/67; PULSE 66; RESP 20; TEMP 98.2; O2SAT 97
[2017-03-16] MEDS: NITROGLYCERIN 2% OINT 1 GM PACKET TOPICAL SCH ×5 (01:19→23:00)
[2017-03-16] MEDS: ACETAMINOPHEN/HYDROcodone 325 MG/5 MG TAB PO PRN ×2 (01:31→20:08)
[2017-03-16 04:00] VITALS: BP 126/56; PULSE 60; RESP 20; TEMP 96.7; O2SAT 95
[2017-03-16 08:00] VITALS: BP 108/68; PULSE 56; RESP 16; TEMP 97.2; O2SAT 94
[2017-03-16 09:10] LABS: AUTOMATED NEUTROPHIL # 5.8 TH/MM3 (1.8-7.7); BASOPHIL % 0.2 % (0.0-2.0); EOSINOPHIL # 0.2 TH/MM3 (0-0.4); EOSINOPHIL % 2.1 % (0.0-4.0); HEMATOCRIT 40.8 % (35.0-46.0); HEMOGLOBIN 12.8 GM/DL (11.6-15.3); LYMPH % 41.5 % (9.0-44.0); LYMPHOCYTE # 4.4 TH/MM3 (1.0-4.8); MEAN CELL VOLUME 80.8 FL (80.0-100.0); MEAN CORPUSCULAR HEMOGLOBIN 25.2 PG (27.0-34.0); MEAN CORPUSCULAR HGB CONC 31.2 % (32.0-36.0); MEAN PLATELET VOLUME 7.6 FL (7.0-11.0); MONO % 2.4 % (0.0-8.0); MONOCYTE # 0.3 TH/MM3 (0-0.9); NEUT % 53.8 % (16.0-70.0); PLATELET COUNT 433 TH/MM3 (150-450); RED BLOOD COUNT 5.06 MIL/MM3 (4.00-5.30); RED CELL DISTRIBUTION WIDTH 17.1 % (11.6-17.2); WHITE BLOOD COUNT 10.7 TH/MM3 (4.0-11.0)
[2017-03-16 09:15] LABS: BICARBONATE 29.5 MEQ/L (21.0-32.0)
[2017-03-16 09:18] LABS: CREATININE 0.79 MG/DL (0.50-1.00)
--- NOTE | 2017-03-16 09:26 | HHI.PR ---
Subjective Remarks Patient in bed, says no more chest pain overnight nitro past helps. No n/v/d/c. No diaphoresis. Patient with low HR, on metoprolol. Patient however declines pharmacologic test and wants stress test. Objective Vitals Vital Signs Date Time Temp Pulse Resp B/P (MAP) Pulse Ox O2 Delivery O2 Flow Rate FiO2 03/16/17 04:00 96.7 60 20 126/56 (79) 95 03/16/17 00:00 98.2 66 20 113/67 (82) 97 03/15/17 20:09 86 03/15/17 20:00 96.8 72 20 130/71 (90) 96 03/15/17 18:30 74 03/15/17 18:15 97.9 70 20 135/79 (97) 98 03/15/17 18:09 03/15/17 17:30 66 16 112/61 (78) 96 Room Air 03/15/17 16:29 62 16 126/64 (84) 96 Room Air 03/15/17 15:45 62 16 127/75 (92) 98 Room Air 03/15/17 14:30 56 16 119/60 (79) 97 Room Air 03/15/17 13:30 60 17 136/65 (88) 97 Room Air 03/15/17 13:15 18 96 Room Air 03/15/17 13:15 58 18 135/60 (85) 96 Room Air 03/15/17 12:46 60 16 156/79 (104) 98 I/O 03/15/17 03/15/17 03/15/17 03/16/17 03/16/17 03/16/17 07:00 15:00 23:00 07:00 15:00 23:00 Intake Total 0 ml Balance 0 ml Intake Oral 0 ml # Voids 2 Result Diagram: 03/16/17 0800 03/16/17 0800 Imaging Reported Meds & Active Scripts Active Reported Prednisone 5 Mg Tab 5 Mg PO DAILY Hydrocodone-Acetaminophen 5-325 mg Tab 1 Tab PO BID PRN Enbrel Inj Kit (Etanercept) 25 Mg Kit 50 Mg SQ WEEKLY Prozac (Fluoxetine HCl) 40 Mg Cap 40 Mg PO DAILY Omeprazole 20 Mg Tab 20 Mg PO DAILY Nitroglycerin SL (Nitroglycerin) 0.4 Mg Subl 0.4 Mg SL DIRECTED PRN ONE TABLET UNDER THE TONGUE NEEDED FOR CHEST PAIN, MAY REPEAT EVERY FIVE MINUTES FOR A TOTAL OF 3 DOSES OR CALL 911 IF NO RELIEF Metoprolol Tartrate 25 Mg Tab 25 Mg PO BID Methotrexate 2.5 Mg Tab 7.5 Mg IM Q7D Ativan (Lorazepam) 0.5 Mg Tab 0.5 Mg PO Q8H PRN Plaquenil (Hydroxychloroquine Sulfate) 200 Mg Tab 200 Mg PO BID Take with food Plavix (Clopidogrel Bisulfate) 300 Mg Tab 75 Mg PO DAILY Lipitor (Atorvastatin Calcium) 20 Mg Tab 20 Mg PO HS Aspirin 81 Mg Chew 81 Mg CHEW DAILY Objective Remarks GENERAL: This is a well-nourished, well-developed patient, in no apparent distress. CARDIOVASCULAR: Regular rate and rhythm without murmurs, gallops, or rubs. No reproducible chest pain to palpation. RESPIRATORY: Clear to auscultation. Breath sounds equal bilaterally. No wheezes , rales, or rhonchi. GASTROINTESTINAL: Abdomen soft, non-tender, nondistended. No guarding. MUSCULOSKELETAL: Extremities without clubbing, cyanosis, or edema. No joint tenderness, effusion, or edema noted. NEUROLOGICAL: Awake and alert. Cranial nerves II through XII intact. Motor and sensory grossly within normal limits. Five out of 5 muscle strength in all muscle groups. Normal speech. A/P Problem List: (1) Chest pain ICD Code: R07.9 - Chest pain Status: Acute (2) Hyperlipidemia ICD Code: E78.5 - Hyperlipidemia Status: Chronic (3) CAD (coronary artery disease) ICD Code: I25.10 - Coronary artery disease Status: Chronic (4) Rheumatoid arthritis ICD Code: M06.9 - Rheumatoid arthritis Status: Acute Assessment and Plan Patient has been admitted to the chest pain center for observation. She does have extensive cardiovascular disease history with presence of CAD, history of [place] and CABG 2 vessels with previous cardiac stent placement 5. Serial EKGs and serial troponin x3 negative. EKG reviewed showing sinus bradycardia, no arrhythmias, no T-wave changes noted. Patient received metoprolol and HR into a lower side, she declines pharmacologic stress test and wants stress test, will hold metoprolol and to stress test tomorrow. Nitroglycerin placed on chest. Placed on daily aspirin. Control pain, [place] available when necessary as needed. CBC and BMP reviewed, essentially unremarkable. Chest x-ray reviewed showing no acute cardiopulmonary abnormality. Supplemental O2 as needed. Supportive care. Continue cardiac telemetry, monitor for any arrhythmias. Nothing by mouth after midnight for possible stress test in a.m.. Hold metoprolol. Patient is a high cardiac risk (2) Hyperlipidemia ICD Code: E78.5 - Hyperlipidemia Status: Chronic Plan: Continue home statin. (3) CAD (coronary artery disease) ICD Code: I25.10 - Coronary artery disease Status: Chronic Plan: With [place] history and CABG 2 vessels Continue daily aspirin. Continue home Plavix and Plaquenil. (4) Rheumatoid arthritis ICD Code: M06.9 - Rheumatoid arthritis Status: Acute Plan: Continue home prednisone. DVT prophylaxis: SCDs. Lovenox. dC plan poss Dc tomorrow if stress test negative Problem Qualifiers (1) Chest pain: Qualified Codes: R07.9 - Chest pain, unspecified Tangela Temple MD Mar 16, 2017 09:26
[2017-03-16] MEDS: FLUoxetine HCL 20 MG CAP PO SCH (10:03)
[2017-03-16] MEDS: PANTOPRAZOLE SOD 20 MG DELAYED RELEASE TAB PO SCH (10:03)
[2017-03-16] MEDS: CLOPIDOGREL 75 MG TAB PO SCH (10:03)
[2017-03-16] MEDS: ASPIRIN 81 MG CHEW TAB CHEW SCH (10:03)
[2017-03-16] MEDS: predniSONE 5 MG TAB PO SCH (10:04)
[2017-03-16] MEDS: DOCUSATE SODIUM 50 MG/SENNA 8.6 MG TAB PO SCH ×2 (10:04→20:11)
[2017-03-16] MEDS: METOPROLOL TARTRATE 25 MG TAB PO SCH (10:04)
[2017-03-16] MEDS: HYDROXYCHLOROQUINE SULFATE 200 MG TAB PO SCH ×2 (10:04→20:08)
[2017-03-16] MEDS: SODIUM CHLORIDE 0.9% FLUSH 10 ML FLUSH IV FLUSH SCH ×2 (10:08→20:10)
[2017-03-16 12:00] VITALS: BP 115/82; PULSE 61; RESP 16; TEMP 97.7; O2SAT 98
--- NOTE | 2017-03-16 15:12 | EKG ---
Date Performed: 03/15/2017 Time Performed: 14:54:29 PTAGE: 51 years EKG: SINUS BRADYCARDIA BORDERLINE ECG PREVIOUS TRACING : 03/15/2017 12.47 Since previous tracing, no significant change noted DOCTOR: Darrin Odom Interpretating Date/Time 03/16/2017 15:10:44
[2017-03-16 16:00] VITALS: BP 109/80; PULSE 63; RESP 16; TEMP 97.2; O2SAT 97
--- NOTE | 2017-03-16 16:23 | EKG ---
Date Performed: 03/15/2017 Time Performed: 12:47:44 PTAGE: 51 years EKG: SINUS BRADYCARDIA MODERATE ST DEPRESSION Compared to previous tracing, ST-T abnormality imp roved from the prior tracing ABNORMAL ECG PREVIOUS TRACING : 12/26/15 @ 1037 DOCTOR: Darrin Odom Interpretating Date/Time 03/16/2017 16:21:55
--- NOTE | 2017-03-16 16:23 | EKG ---
Date Performed: 03/15/2017 Time Performed: 16:31:08 PTAGE: 51 years EKG: Sinus rhythm MARKED LEFT AXIS DEVIATION Since previous tracing, no significant change noted ABNORMAL ECG PREVIOUS TRACING : 03/15/2017 14.54 DOCTOR: Darrin Odom Interpretating Date/Time 03/16/2017 16:22:22
--- NOTE | 2017-03-16 16:24 | EKG ---
Date Performed: 03/15/2017 Time Performed: 19:13:56 PTAGE: 51 years EKG: Sinus rhythm INDETERMINATE AXIS Since previous tracing, no significant change noted ABNORMAL ECG PREVIOUS TRACING : 03/15/2017 16.31 DOCTOR: Darrin Odom Interpretating Date/Time 03/16/2017 16:22:49
[2017-03-16] MEDS: ENOXAPARIN SODIUM 40 MG/0.4 ML SYRINGE SQ SCH (17:40)
[2017-03-16 20:00] VITALS: BP 104/67; PULSE 66; PULSE 69; RESP 18; TEMP 97.7; O2SAT 97
[2017-03-16] MEDS: ATORVASTATIN 20 MG TAB PO SCH (20:08)
[2017-03-17] VITALS: BP 101/59; PULSE 64; RESP 16; TEMP 95.8; O2SAT 97
[2017-03-17 04:00] VITALS: BP 123/68; PULSE 66; RESP 16; TEMP 97.5; O2SAT 98
[2017-03-17] MEDS: NITROGLYCERIN 2% OINT 1 GM PACKET TOPICAL SCH (05:01)
[2017-03-17 08:00] VITALS: BP 144/90; PULSE 70; RESP 18; TEMP 97.8; O2SAT 98
[2017-03-17] MEDS: predniSONE 5 MG TAB PO SCH (08:26)
[2017-03-17] MEDS: DOCUSATE SODIUM 50 MG/SENNA 8.6 MG TAB PO SCH (08:26)
[2017-03-17] MEDS: ASPIRIN 81 MG CHEW TAB CHEW SCH (08:27)
[2017-03-17] MEDS: HYDROXYCHLOROQUINE SULFATE 200 MG TAB PO SCH (08:27)
[2017-03-17] MEDS: PANTOPRAZOLE SOD 20 MG DELAYED RELEASE TAB PO SCH (08:27)
[2017-03-17] MEDS: FLUoxetine HCL 20 MG CAP PO SCH (08:28)
[2017-03-17] MEDS: SODIUM CHLORIDE 0.9% FLUSH 10 ML FLUSH IV FLUSH SCH (08:28)
[2017-03-17] MEDS: CLOPIDOGREL 75 MG TAB PO SCH (08:29)
--- NOTE | 2017-03-17 09:39 | HHI.PR ---
Subjective Remarks Follow-up chest pain. Patient seen and examined, sitting up in chair comfortably. Denies any further chest pain overnight. Awaiting treadmill stress test this morning. Vital signs stable overnight. Denies any acute complaints. Objective Vitals Vital Signs Date Time Temp Pulse Resp B/P (MAP) Pulse Ox O2 Delivery O2 Flow Rate FiO2 03/17/17 04:00 97.5 66 16 123/68 (86) 98 03/17/17 00:00 95.8 64 16 101/59 (73) 97 03/16/17 21:20 20 03/16/17 20:00 69 03/16/17 20:00 97.7 66 18 104/67 (79) 97 03/16/17 16:00 97.2 63 16 109/80 (90) 97 03/16/17 16:00 97 03/16/17 12:00 97.7 61 16 115/82 (93) 98 I/O 03/16/17 03/16/17 03/16/17 03/17/17 03/17/17 03/17/17 07:00 15:00 23:00 07:00 15:00 23:00 Intake Total 0 ml 0 ml 240 ml Balance 0 ml 0 ml 240 ml Intake Oral 0 ml 0 ml 240 ml # Voids 2 3 4 # Bowel Movements 0 Result Diagram: 03/16/17 0800 03/16/17 0800 Imaging Last Impressions Chest X-Ray 03/15/17 1252 Signed Impressions: Service Date/Time: Wednesday, March 15, 2017 12:59 - CONCLUSION: No acute cardiopulmonary abnormality is identified. Abdelrahman Kellogg MD Objective Remarks GENERAL: Well-nourished, well-developed patient in NAD. SKIN: Warm and dry. No rash. HEAD: Normocephalic. Atraumatic. EYES: Pupils equal and round. No scleral icterus. No injection or drainage. ENT: No nasal bleeding or discharge. Mucous membranes pink and moist. NECK: Supple. Trachea midline. CARDIOVASCULAR: Regular rate and rhythm. S1, S2 noted. No murmur appreciated. No reproducible chest pain to palpation. RESPIRATORY: No accessory muscle use. Clear to auscultation. Breath sounds equal bilaterally. GASTROINTESTINAL: Abdomen soft, non-tender, nondistended. Normoactive bowel sounds x4. MUSCULOSKELETAL: No obvious deformities. Extremities without clubbing, cyanosis , or edema. NEUROLOGICAL: Awake and alert. No obvious cranial nerve deficits. Motor grossly within normal limits. 5/5 muscle strength in bilateral upper and lower extremities. Normal speech. PSYCHIATRIC: Appropriate mood and affect; insight and judgment normal. A/P Problem List: (1) Chest pain ICD Code: R07.9 - Chest pain Status: Acute Plan: Patient has been admitted to the chest pain center for observation. She does have extensive cardiovascular disease history with presence of CAD, history of [place] and CABG 2 vessels with previous cardiac stent placement 5. Serial EKGs and serial troponins have been ordered for ruling out purposes. Serial troponins negative. EKG reviewed showing sinus bradycardia, no arrhythmias, no T-wave changes noted. Nitroglycerin placed on chest. Placed on daily aspirin. Control pain, [place] available when necessary as needed. CBC and BMP reviewed, essentially unremarkable. Chest x-ray reviewed showing no acute cardiopulmonary abnormality. Supplemental O2 as needed. Supportive care. Comfortable on room air. Chest pain resolved. Continue cardiac telemetry, monitor for any arrhythmias. Patient will undergo a cardiac ETT this morning, further hospitalization will depend on results. Patient is stable at this time and agreeable to the plan. (2) Hyperlipidemia ICD Code: E78.5 - Hyperlipidemia Status: Chronic Plan: Continue home statin. (3) CAD (coronary artery disease) ICD Code: I25.10 - Coronary artery disease Status: Chronic Plan: With [place] history and CABG 2 vessels Continue daily aspirin. Continue home Plavix and Plaquenil. (4) Rheumatoid arthritis ICD Code: M06.9 - Rheumatoid arthritis Status: Acute Plan: Continue home prednisone. DVT prophylaxis: SCDs. Lovenox. Assessment and Plan Patient underwent cardiac keep CT today, images reviewed by on-call business objects developer. No ischemia noted. Patient updated about results and will discharge home today with plans to follow-up with PCP. Patient encouraged to establish new business objects developer that accepts her insurance. Patient is stable at this time and agreeable to the plan. Problem Qualifiers (1) Chest pain: Qualified Codes: R07.9 - Chest pain, unspecified RobbieSita GENEVIEVE Mar 17, 2017 09:39
--- NOTE | 2017-03-17 10:42 | HHI.DCPOC ---
Discharge Care Plan Diagnosis: (1) Chest pain (2) Rheumatoid arthritis (3) CAD (coronary artery disease) (4) Hyperlipidemia Goals to Promote Your Health * To prevent worsening of your condition and complications * To maintain your health at the optimal level Directions to Meet Your Goals Take your medications as prescribed Follow your dietary instruction Follow activity as directed Keep your appointments as scheduled Take your immunizations and boosters as scheduled If your symptoms worsen call your PCP, if no PCP go to Urgent Care Center or Emergency Room Smoking is Dangerous to Your Health. Avoid second hand smoke Call the 24-hour hour crisis hotline for domestic abuse at Sita Avalos Mar 17, 2017 10:42
--- NOTE | 2017-03-17 15:39 | TR ---
Date Performed: 03/17/2017 Time Performed: 10:00:42 DOCTOR: Pedro May DRUG LIST: CLINICAL HISTORY: CHEST PAIN REASON FOR TEST: REASON FOR ENDING: OBSERVATION: CONCLUSION: Duane protocol performed test stopped secondary to reaching target heart rate and le g fatigue. No ST changes to indicate and ischemia. No reproducible chest discomfort. Fair exercise to lerance.Recovery quick and unremarkable.Maximum BN=872 Target HR Cxxddxzx=054.0% Maximum CT=238/68 To mireya Exercise Time=3:50 COMMENTS:
[2017-03-22] MEDS ORDERED: ETANERCEPT 50 MG SQ SCH (08:00)
== END 2017-03-17 12:25 | disposition home or self-care (01) ==
LOC: PHED 12:40 → PHEDA 14:25 → PH3B 17:56
PROVIDERS: ADMIT Hospitalist; ATTEND Hospitalist
DX: R07.9 Chest pain, unspecified (principal); I25.10 Atherosclerotic heart disease of native coronary artery without angina pectoris; I10 Essential (primary) hypertension; M06.9 Rheumatoid arthritis, unspecified; E78.5 Hyperlipidemia, unspecified; I73.9 Peripheral vascular disease, unspecified; M79.7 Fibromyalgia; M34.9 Systemic sclerosis, unspecified; K21.9 Gastro-esophageal reflux disease without esophagitis; I25.2 Old myocardial infarction; F41.0 Panic disorder [episodic paroxysmal anxiety]; F40.240 Claustrophobia; Z79.82 Long term (current) use of aspirin; Z87.891 Personal history of nicotine dependence; Z95.1 Presence of aortocoronary bypass graft; Z95.5 Presence of coronary angioplasty implant and graft; Z88.5 Allergy status to narcotic agent
CPT/HCPCS: 71045; 80048; 82550; 83735; 84484; 85025; 85610; 85730; 93005; 93017; 96372; 97161; 99285; G0378; G8987; G8988; G8989; J1650; J7512